=== PATIENT | female | born 1950 | race Caucasian/White ===

== ENCOUNTER → 2018-04-30 12:24 | Outpatient (CLI) | payer MEDICARE, OTHER, SELFPAY ==
--- NOTE | 2018-04-30 | DI.US.S_ITS ---
ULTRASOUND OF LEFT BREAST: 04/30/2018 CLINICAL: 6 month follow-up of cyst. Comparison is made to exams dated: 04/30/2018 mammogram, 11/03/2017 ultrasound, 04/29/2017 ultrasound, 04/29/2017 mammogram, 04/18/2017 mammogram, and 07/28/2013 mammogram - [facility]. Real-time and Doppler ultrasound of the left breast were performed. An scale images of the real-time examination were reviewed. There is a 0.5 x 0.5 x 0.4 cm (previously 0.7 cm x 0.6 cm x 0.4 cm on comparison ultrasound of 11/03/2017) oval cyst with a smooth internal wall in the left breast at 2 o'clock posterior depth 7 cm from the [id number]. This oval cyst is hypoechoic. This abnormality is not significantly changed from prior exam. Color flow imaging demonstrates that there is no vascularity present. IMPRESSION: PROBABLY BENIGN - FOLLOW-UP RECOMMENDED Stable 0.5 cm cyst in the left breast is probably benign. A follow-up ultrasound in 6 months is recommended to demonstrate continued stability. This exam was interpreted at Station ID: [id number]. Electronically Signed By: David Rocha M.D. ecl/:04/30/2018 19:00:49 letter sent: Followup Recommended Ultrasound BI-RADS: 3 Probably benign
--- NOTE | 2018-04-30 | DI.MG.S_ITS ---
BILATERAL DIGITAL DIAGNOSTIC MAMMOGRAM 3D/2D SHORT-TERM FOLLOW-UP: 04/30/2018 CLINICAL: Patient returns for a 6 month follow up of the left breast. Due for bilateral imaging. Comparison is made to exams dated: 04/29/2017 mammogram, 04/18/2017 mammogram, and 07/28/2013 mammogram - [facility]. There are scattered fibroglandular elements in both breasts. Subcentimeter oval circumscribed mass in the left breast at 2 o'clock posterior depth 7 cm from the nipple seen on comaparison exams is not significantly changed from prior exam. No other significant masses, calcifications, or other findings are seen in either breast. IMPRESSION: INCOMPLETE: NEEDS ADDITIONAL IMAGING EVALUATION Stable subcentimeter oval mass in the left breast. Recommend targeted ultrasound for further evaluation. Otherwise, no mammographic evidence of maligancy in either breast identified. This exam was interpreted at Station ID: [id number]. NOTE: For mammograms, a report in lay terms will be sent to the patient. Approximately 15% of breast malignancies will not be visualized mammographically. In the management of a palpable breast mass, a negative mammogram must not discourage biopsy of a clinically suspicious lesion. Electronically Signed By: David Rocha M.D. ecl/:04/30/2018 18:57:58 ACR BI-RADS Category 0: Incomplete 3340F
== END ==
PROVIDERS: Family Provider Family Medicine; PCP Family Medicine; Visit Provider Family Medicine
DX: R92.8 Other abnormal and inconclusive findings on diagnostic imaging of breast (principal); N60.02 Solitary cyst of left breast
CPT/HCPCS: 76642; 77066; G0279

== ENCOUNTER → 2018-07-23 13:33 | Outpatient (CLI) | payer MEDICARE, OTHER, SELFPAY | PROVIDERS: Family Provider Family Medicine; PCP Family Medicine; Visit Provider Family Medicine | DX: R20.2 Paresthesia of skin (principal) | CPT/HCPCS: 95886; 95909 ==

== ENCOUNTER → 2019-03-15 09:08 | Outpatient (CLI) | payer MEDICARE, OTHER, SELFPAY ==
--- NOTE | 2019-03-15 | DI.US.S_ITS ---
LIMITED ULTRASOUND OF LEFT BREAST: 03/15/2019 CLINICAL: 6 month follow-up of cyst. Comparison is made to exams dated: 03/15/2019 mammogram, 04/30/2018 ultrasound, 04/30/2018 mammogram, 11/03/2017 ultrasound, 04/29/2017 ultrasound, and 04/29/2017 mammogram - [facility]. Real-time and Doppler ultrasound of the left breast 2 o'clock region were performed. An scale images of the real-time examination were reviewed. There is a 0.5 x 0.5 x 0.4 cm (previously 0.5 x 0.5 x 0.4 cm on comparison ultrasound of 04/30/2018, 0.7 cm x 0.6 cm x 0.4 cm on comparison ultrasound of 11/03/2017, and 0.8 x 0.8 x 0.4 cm on comparison ultrasound of 04/29/2017) oval circumscribed probable cyst with in the left breast at 2 o'clock position 7 cm from the nipple. This oval probable cyst is hypoechoic. There is posterior acoustic enhancement/increased through transmission through the probable cyst. This probable cyst is not significantly changed from most recent prior exam. Color flow imaging demonstrates that there is no vascularity present within or adjacent to this probable cyst. IMPRESSION: PROBABLY BENIGN Stable 0.5 cm probable cyst in the left breast at 2 o'clock position 7 cm from the nipple is probably benign. A follow-up ultrasound in 6 months is recommended to demonstrate continued stability. The patient is advised to monitor her breasts and to return sooner for re-evaluation should she feel anything grow or change. This exam was interpreted at Station ID: [id number]. Electronically Signed By: David Rocha M.D. ecl/:03/15/2019 10:56:08 letter sent: Followup Recommended Ultrasound BI-RADS: 3 Probably benign
--- NOTE | 2019-03-15 | DI.MG.S_ITS ---
BILATERAL DIGITAL DIAGNOSTIC MAMMOGRAM 3D/2D SHORT-TERM FOLLOW-UP: 03/15/2019 CLINICAL: Short follow up left breast (late), due bilaterally. Comparison is made to exams dated: 04/30/2018 mammogram, 04/29/2017 mammogram, 04/18/2017 mammogram, 04/30/2018 ultrasound, 04/29/2017 ultrasound, and 11/03/2017 ultrasound - [facility]. There are scattered fibroglandular elements in both breasts. Previously noted subcentimeter oval circumscribed mass in the left breast at 2 o'clock posterior depth 7 cm from the nipple seen on comparison exams is not significantly changed from prior exams. A focal asymmetry in the lateral right breast at middle depth resolves with additional spot compression views, and likely represented superimposition of benign fibroglandular tissues. No other significant masses, calcifications, or other findings are seen in either breast. IMPRESSION: INCOMPLETE: NEEDS ADDITIONAL IMAGING EVALUATION Previously noted subcentimeter oval circumscribed mass in the left breast at 2 o'clock posterior depth 7 cm from the nipple seen on comparison exams is not significantly changed from prior exams. A targeted ultrasound is recommended for further evaluation. This exam was interpreted at Station ID: [id number]. NOTE: For mammograms, a report in lay terms will be sent to the patient. Approximately 15% of breast malignancies will not be visualized mammographically. In the management of a palpable breast mass, a negative mammogram must not discourage biopsy of a clinically suspicious lesion. Electronically Signed By: David Rocha M.D. ecl/:03/15/2019 10:07:28 ACR BI-RADS Category 0: Incomplete 3340F
== END ==
PROVIDERS: PCP Family Medicine; Visit Provider Family Medicine
DX: R92.8 Other abnormal and inconclusive findings on diagnostic imaging of breast (principal); N63.21 Unspecified lump in the left breast, upper outer quadrant
CPT/HCPCS: 76642; 77066; G0279

== ENCOUNTER → 2019-09-23 10:14 | Outpatient (CLI) | payer MEDICARE, OTHER, SELFPAY ==
--- NOTE | 2019-09-23 | DI.US.S_ITS ---
LIMITED ULTRASOUND OF LEFT BREAST: 09/23/2019 CLINICAL: 6 month follow-up of cysts. Comparison is made to exams dated: 03/15/2019 ultrasound, 03/15/2019 mammogram, 04/30/2018 ultrasound, 04/30/2018 mammogram, 11/03/2017 ultrasound, and 04/29/2017 ultrasound [facility]. Color flow and real-time ultrasound of the left breast 2 o'clock region were performed. An scale images of the real-time examination were reviewed. There is a stable 0.5 cm x 0.4 cm x 0.5 cm hypoechoic cystic structure in the left breast at 2 o'clock posterior depth 7 cm from the nipple. This cyst displays posterior acoustic enhancement. Color flow imaging demonstrates that there is no vascularity present. IMPRESSION: BENIGN There is no sonographic evidence of malignancy. The 0.5 cm cyst in the left breast is stable, most likely is a simple cyst and is benign. Return to annual mammogram screening schedule is recommended. Findings and recommendations were conveyed to the patient at time of exam. This exam was interpreted at Station ID: [id number]. Electronically Signed By: Sweetie rodríguez/:09/23/2019 13:04:40 letter sent: Normal Exam Ultrasound BI-RADS: 2 Benign
== END ==
PROVIDERS: PCP Family Medicine; Visit Provider Family Medicine
DX: R92.8 Other abnormal and inconclusive findings on diagnostic imaging of breast (principal); N60.02 Solitary cyst of left breast
CPT/HCPCS: 76642

== ENCOUNTER → 2020-07-03 09:42 | Outpatient (CLI) | payer MEDICARE, OTHER, SELFPAY ==
--- NOTE | 2020-07-03 | DI.MG.S_ITS ---
BILATERAL DIGITAL SCREENING MAMMOGRAM 3D/2D WITH CAD: 07/03/2020 CLINICAL: Routine screening. Comparison is made to exams dated: 03/15/2019 mammogram, 04/30/2018 mammogram, 04/18/2017 mammogram, and 07/28/2013 mammogram - [facility]. There are scattered fibroglandular elements in both breasts. Current study was also evaluated with a Computer Aided Detection (CAD) system. No significant masses, calcifications, or other findings are seen in either breast. There has been no significant interval change. IMPRESSION: NEGATIVE There is no mammographic evidence of malignancy. A 1 year screening mammogram is recommended. This exam was interpreted at Station ID: [id number]. NOTE: For mammograms, a report in lay terms will be sent to the patient. Approximately 15% of breast malignancies will not be visualized mammographically. In the management of a palpable breast mass, a negative mammogram must not discourage biopsy of a clinically suspicious lesion. Electronically Signed By: Pedro Luis perla/alannah:07/03/2020 17:36:52 letter sent: Normal Exam ACR BI-RADS Category 1: Negative 3341F
== END ==
PROVIDERS: PCP Family Medicine; Referring Provider Family Medicine; Visit Provider Family Medicine
DX: Z12.31 Encounter for screening mammogram for malignant neoplasm of breast (principal)
CPT/HCPCS: 77063; 77067

== ENCOUNTER → 2021-02-14 07:40 | Outpatient (CLI) | payer MEDICARE, OTHER, SELFPAY ==
--- NOTE | 2021-02-14 | DI.ECHO.S_ITS ---
[facility]---------+ [facility] +---------+ : : [address] : : : : [id number] : : : : Phone: [phone]+ Echocardiogram Report + + :Name: MACIE GAUTHIER Study Date: 02/14/2021 Height: 63 in : :[facility] ReadingLocation: Weight: 289 lb : : Gender: Female BSA: 2.3 m2 : :: 1950 Age: 70 yrs BP: 140/76 mmHg: :Reason For Study: CARDIAC MURMUR : :Ordering Physician: HUGH, : :NICHOLAS Performed By: Lana Machado : :Referring: NICHOLAS REESE : + + Interpretation Summary Technicall difficult study limiting LV and valve visualization. 1) Grossly normal left ventricular size and systolic function (EF 60-65%). 2) The right ventricle is mildly dilated. The right ventricular systolic function is normal. 3) No significant valvular abnormalities. 4) No prior Echo available for comparison. Procedure: The study quality was technically limited. There is no prior echocardiogram noted for this patient. The study quality was technically difficult. A contrast injection of Definity was performed to improve assessment of LV function. The patient was in sinus rhythm with heart rates between 68-78 bpm during the exam. Left Ventricle: The left ventricle is grossly normal size. The left ventricular ejection fraction is grossly normal. The ejection fraction is estimated to be 60-65%. There are no obvious focal wall motion abnormalities noted but poor endocardial definition reduces the sensitivity for the detection of such. Diastolic parameters suggest probable normal left ventricular diastolic function and normal filling pressures. Right Ventricle: The right ventricle is mildly dilated. The right ventricular systolic function is normal. Atria: Both atria are normal in size. There is no Doppler evidence for an interatrial shunt. Mitral Valve: The mitral valve leaflets appear mildly thickened, but open well. There is trace mitral regurgitation. Aortic Valve: The aortic valve is not well visualized. There is mild aortic valve sclerosis. There is no aortic valve stenosis. No aortic regurgitation is present. Tricuspid Valve: The tricuspid valve is not well visualized, but is grossly normal. There is mild tricuspid regurgitation. Right ventricular systolic pressure is estimated to be 27 mmHg plus the clinically estimated CVP which cannot be estimated on this exam. Pulmonic Valve: The pulmonic valve is not well visualized. Great Vessels: The aortic root is normal size. The dimensions of the ascending aorta are normal. The aortic arch is normal in size. The inferior vena cava was not well visualized. Pericardium/ Pleura There is no pericardial effusion. There is no pleural effusion. MMode/2D Measurements & Calculations EPSS: 0.33 cm LVOT diam: 2.1 cm Ao root diam: 3.0 cm asc Aorta Diam: 3.2 cm Ao Arch Diam (Prox Trans): 2.9 cm LA A2 area: 17.6 cm2 RA long axis: 4.6 cm LA A4 area: 25.0 cm2 RA area: 15.5 cm2 LA length (vol): 5.8 cm RA vol: 44.2 ml LA vol: 64.8 ml RA : 19.6 ml/m2 LA vol index: 28.6 ml/m2 RVD1 (basal): 4.0 cm TAPSE: 2.4 cm Doppler Measurements & Calculations Ao V2 max: 190.6 cm/sec LVOT Max Dhiraj: 118.9 cm/sec Ao V2 mean: 141.8 cm/sec LV V1 max P.7 mmHg Ao max P.5 mmHg LV V1 VTI: 28.9 cm Ao mean P.9 mmHg BAUTISTA(I,D): 2.3 cm2 Ao V2 VTI: 42.4 cm BAUTISTA(V,D): 2.1 cm2 sev ratio: 0.68 BAUTISTA indexed to BSA (cm^2/m^2): 1.00 MV E max dhiraj: 95.3 cm/sec TR max dhiraj: 257.9 cm/sec MV A max dhiraj: 126.0 cm/sec TR max P.6 mmHg MV E/A: 0.76 PA V2 max: 104.6 cm/sec Med Peak E' Dhiraj: 6.5 cm/sec PA V2 mean: 72.6 cm/sec E/E' med: 14.8 PA mean P.4 mmHg Lat Peak E' Dhiraj: 10.6 cm/sec PA pr(Accel): 36.2 mmHg E/E' lat: 9.0 E/e' average: 11.9 MV dec time: 0.25 sec SV(LVOT): 95.8 ml Reading Physician:12:46 PM
== END ==
PROVIDERS: PCP Family Medicine; Referring Provider Family Medicine; Visit Provider Family Medicine
DX: I08.2 Rheumatic disorders of both aortic and tricuspid valves (principal); R01.1 Cardiac murmur, unspecified
CPT/HCPCS: 93306

== ENCOUNTER → 2021-02-23 08:50 | Outpatient (CLI) | payer MEDICARE, OTHER, SELFPAY ==
--- NOTE | 2021-02-23 | DI.US.S_ITS ---
PROCEDURE: US CAROTID DOPPLER BI INDICATIONS: BRUIT TECHNIQUE: Color and pulse Doppler interrogation was performed of both carotid systems, with image documentation and velocity measurements. COMPARISON: None. FINDINGS: Stenosis calculations are based on SRU (Society of Radiologists in Ultrasound) criteria. Right side: Common carotid artery peak systolic velocity: 95 cm/sec. Internal carotid artery peak systolic velocity: 111 cm/sec. Internal carotid artery end diastolic velocity: 11 cm/sec. External carotid artery peak systolic velocity: 173 cm/sec. ICA/CCA peak systolic ratio: 1.2 . An scale imaging description: No visualize calcific or soft plaque Percent internal carotid artery stenosis: None found . Vertebral artery: Flow direction is antegrade. Left side: Brachial blood pressure: 122/59 mm Hg. Common carotid artery peak systolic velocity: 95 cm/sec. Internal carotid artery peak systolic velocity: 109 cm/sec. Internal carotid artery end diastolic velocity: 29 cm/sec. External carotid artery peak systolic velocity: 141 cm/sec. ICA/CCA peak systolic ratio: 1.2 . An scale imaging description: None found Percent internal carotid artery stenosis: None found . Vertebral artery: Flow direction is antegrade. IMPRESSION: No appreciable carotid stenosis bilaterally. Vertebral arterial flow is normal. Dictated by: Heriberto Richards M.D. on 02/23/2021 at 15:50 Approved by: Heriberto Richards M.D. on 02/23/2021 at 15:55
== END ==
PROVIDERS: PCP Family Medicine; Referring Provider Family Medicine; Visit Provider Family Medicine
DX: R09.89 Other specified symptoms and signs involving the circulatory and respiratory systems (principal)
CPT/HCPCS: 93880

== ENCOUNTER → 2021-11-12 10:21 | Outpatient (CLI) | payer MEDICARE, OTHER, SELFPAY ==
--- NOTE | 2021-11-12 | DI.MG.S_ITS ---
BILATERAL DIGITAL SCREENING MAMMOGRAM 3D/2D WITH CAD: 11/12/2021 CLINICAL: Routine screening. Comparison is made to exams dated: 07/03/2020 mammogram, 03/15/2019 mammogram, and 04/30/2018 mammogram - [facility]. There are scattered fibroglandular elements in both breasts. Current study was also evaluated with a Computer Aided Detection (CAD) system. No significant masses, calcifications, or other findings are seen in either breast. There has been no significant interval change. IMPRESSION: NEGATIVE There is no mammographic evidence of malignancy. A 1 year screening mammogram is recommended. This exam was interpreted at Station ID: [id number]. NOTE: For mammograms, a report in lay terms will be sent to the patient. Approximately 15% of breast malignancies will not be visualized mammographically. In the management of a palpable breast mass, a negative mammogram must not discourage biopsy of a clinically suspicious lesion. Electronically Signed By: Manny lazo/alannah:11/12/2021 11:38:28 letter sent: Normal Exam ACR BI-RADS Category 1: Negative 3341F
== END ==
PROVIDERS: PCP Family Medicine; Referring Provider Family Medicine; Visit Provider Family Medicine
DX: Z12.31 Encounter for screening mammogram for malignant neoplasm of breast (principal)
CPT/HCPCS: 77063; 77067

== ENCOUNTER → 2022-10-21 09:53 | Outpatient (CLI) | payer MEDICARE, OTHER, SELFPAY ==
--- NOTE | 2022-10-21 09:55 | DI.RAD.S_ITS ---
PROCEDURE: XR LUMBAR SPINE MIN 4V INDICATIONS: LOW BACK PAIN TECHNIQUE: 5 views of the lumbar spine acquired, including flexion and extension views. COMPARISON: [facility], , L-SPINE 2-3 VIEWS, 08/24/2012, 13:40. FINDINGS: Bones: 5 nonrib-bearing vertebrae are present. There is normal bony alignment. No vertebral body compression fractures. No suspicious bony lesions. Disc space narrowing and hypertrophic facet joints noted in lower lumbar spine. Grade 1 anterior spondylolisthesis at L4-5 and L3-4 Soft tissues: Overlying bowel gas pattern is normal. No suspicious soft tissue calcifications. 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 on 10/21/2022 at 15:35
== END ==
PROVIDERS: PCP Family Medicine; Referring Provider Anesthesiology; Visit Provider Anesthesiology
DX: M51.36 Other intervertebral disc degeneration, lumbar region (principal); M47.816 Spondylosis without myelopathy or radiculopathy, lumbar region; M47.817 Spondylosis without myelopathy or radiculopathy, lumbosacral region; M54.50 Low back pain, unspecified; G89.29 Other chronic pain
CPT/HCPCS: 72110; 99214

== ENCOUNTER 2022-10-31 09:46 | Outpatient (CLI) | payer MEDICARE, OTHER, SELFPAY ==
[2022-10-31] VITALS (10 sets, daily range): BP systolic 125–153; BP diastolic 57–67; PULSE 72–82; RESP 16–23; TEMP 36.6; O2SAT 96–99
--- NOTE | 2022-10-31 09:48 | DI.RAD.S_ITS ---
PROCEDURE: PAIN L/S FACET INJ/BLK 1ST JOHN COMPARISON: [facility], CR, XR LUMBAR SPINE MIN 4V, 10/21/2022, 10:15. INDICATIONS: SPINAL STENOSIS FINDINGS: Right L3-L4, L4-L5, L5-S1 neural foraminal needles. IMPRESSION: Intraoperative guidance provided. Dictated by: Pedro Luis Miller M.D. on 10/31/2022 at 11:56 Approved by: Pedro Luis Miller M.D. on 10/31/2022 at 12:47
[2022-10-31] MEDS: IOPAMIDOL 15 ML VIAL 3 ML INJ (10:49)
[2022-10-31] MEDS: BUPIVACAINE 0.5% MDV 10 ML SUBCUT (10:51)
--- NOTE | 2022-10-31 12:32 | P.PCN_ITS ---
Date/Time/Diagnoses Date of procedure: 10/31/22 Time of procedure: 10:30 Procedure Notes Physician: Blake Smith Total Fluoroscopy time (seconds): 49 Total sedation minutes: 0 Procedure in detail & Post-procedure care: Bilateral L3, 4, 5 Lumbar Medial Branch Blocks Indications: Lili is referred by Dr. Werner for treatment of lumbar spondylosis with low back pain. Preoperative diagnosis: Bilateral lumbar spondylosis Postoperative diagnosis: Same Pre-procedure History: Patient demonstrates today moderate to severe non- radicular back pain without neurologic deficit aggravated by hyperextension yes Back pain greater than leg pain? yes Patient today has tenderness over the suspected joint(s) yes History of post-traumatic injury? now Hypertrophic arthropathy S Back pain associated with suspected motion segment instability, hypermobility or pseudoarthrosis now Pre-testing pain score (VAS): 5/10 Focused Examination: Ax3 Mood and affect are normal Vital Signs: VSS ASA: 3 Consent: Following review of allergies and potential side effects/complications, including, but not necessarily limited to, infection, allergic reaction, local tissue breakdown, stroke, temporary or permanent nerve injury, paralysis, and possible , the patient indicated that they understood and agreed to proceed.? An informed consent document was signed by the patient, witnessed by a nurse and placed in the patient's chart.? Additionally, other treatment options including medications and physical therapy were reviewed with the patient. All questions were answered. Site was then marked. Anesthesia: Local Position: Prone Monitoring: NIBP, Pulse oximetry, 3 lead EKG Needle used: 25G 5 inch spinal needle Contrast: Isovue 300M Injectate: 0.5% bupivacaine 1 mL per site Procedure: The patient was brought into the procedure room and positioned into the prone position. Skin was prepped with a Chloraprep solution, allowed to air dry, and then draped in sterile fashion.? The right L3, 4, 5 facet joints were v isually identified with fluoroscopy. Lidocaine 1% was used to anesthetize the skin over each target destination with a 25ga needle. A 22 ga, 5 inch spinal needle was advanced to the location of the medial branch at the junction of the superior articular process and the transverse process using intermittent fluoroscopy in the oblique view. Isovue 300M contrast 0.2ml was injected at each level outlining the medial borders for each level and the base of the SAP of the sacrum]in the AP and lateral views. There was no evidence of vascular or intrathecal uptake. The above injectate was slowly injected at each target destination. The above procedure was then repeated for the left L3, 4, 5 facet joints. At the end of the procedure the needles were withdrawn and Band-Aids were applied for a dressing. Post Procedure: Patient was taken to the recovery and monitored. The patient was provided a Pain Log to continue to record the patient's response to the target-specific procedure prior to the patient's follow-up visit with the referring physician. Patient was stable upon discharge. Detailed post procedure instructions were provided. Patient was asked to call in the event of worsening pain, fever, weakness, numbness or bladder or bowel incontinence. Postoperatively, today patient demonstrates the following changes with hyperextension and with tenderness over the suspected joint(s). Provacative testing using the Banuelos's facet loading test Right side Left side Directly before the block ?VAS (0-10) = 5/10 VAS (0-10) = 5/10 5 minutes after the block VAS (0-10) = 0/10 VAS (0-10) = 0/10 Percentage relief obtained with this diagnostic block 100 % 100 % Any improved physical functioning directly after the blocks? Walking and range of motion Based on the medial branches blocked today, if the patient meets insurance criteria for radiofrequency, the treatment should result in the denervation of the bilateral L4-5 and L5-S1 facet joint nerves. We would expect to denervate a total of 4 facets during the radiofrequency ablation.
== END 2022-10-31 11:12 | disposition home or self-care (01) ==
LOC: RAD 09:47
PROVIDERS: PCP Family Medicine; Referring Provider Anesthesiology; Visit Provider Anesthesiology
DX: M47.816 Spondylosis without myelopathy or radiculopathy, lumbar region (principal)
CPT/HCPCS: 64493; 64494

== ENCOUNTER → 2024-02-11 12:46 | Outpatient (CLI) | payer MEDICARE, OTHER, SELFPAY ==
--- NOTE | 2024-02-11 12:48 | DI.MG.S_ITS ---
BILATERAL DIGITAL SCREENING MAMMOGRAM 3D/2D WITH CAD: 02/11/2024 CLINICAL: Routine screening. Comparison is made to exams dated: 11/12/2021 mammogram, 07/03/2020 mammogram, 03/15/2019 mammogram, and 04/30/2018 mammogram - . There are scattered areas of fibroglandular density in both breasts (category b / 25%-50% glandular tissue). Current study was also evaluated with a Computer Aided Detection (CAD) system. No significant masses, calcifications, or other findings are seen in either breast. There has been no significant interval change. IMPRESSION: NEGATIVE There is no mammographic evidence of malignancy. A 1 year screening mammogram is recommended. Based on the Tyrer Cuzick model (a risk assessment model) the patient's lifetime risk is 2.0% and her 10 year risk is 1.8%. According to the ACR, ACS, and NCCN guidelines, an annual breast MRI exam along with mammogram is recommended if the patient's lifetime risk is 20% or greater. This exam was interpreted at Station ID: [id number]. NOTE: For mammograms, a report in lay terms will be sent to the patient. Approximately 15% of breast malignancies will not be visualized mammographically. In the management of a palpable breast mass, a negative mammogram must not discourage biopsy of a clinically suspicious lesion. Electronically Signed By: Sweetie rodríguez/alananh:02/16/2024 13:06:53 letter sent: Normal Exam ACR BI-RADS Category 1: Negative 3341F
== END ==
LOC: MAMMO 12:47
PROVIDERS: PCP Family Medicine; Referring Provider Family Medicine; Visit Provider Family Medicine
DX: Z12.31 Encounter for screening mammogram for malignant neoplasm of breast (principal)
CPT/HCPCS: 77063; 77067

== ENCOUNTER → 2024-07-28 11:20 | Outpatient (CLI) | payer MEDICARE, OTHER, SELFPAY ==
--- NOTE | 2024-07-28 | DI.RAD.S_ITS ---
PROCEDURE: XR DEXA AXIAL SKELETON INDICATIONS: HX OF MENOPAUSE COMPARISON: [facility], [place], DEXA AXIAL SKELETON, 11/03/2017, 10:31. FINDINGS: Lumbar Spine: Bone mineral density 1.237 g/cm2, T score 1.8, previously 1.8, with an overall 5 percent decrease in bone mineral density. Left Hip: Bone mineral density 1.044 g/cm2, T score 0.8, previously 0.0, with an overall 11 percent increase in bone density. Left Femoral Neck: Bone mineral density 0.725 g/cm2, T score -1.1, previously-0.8, with an overall 4 percent decrease in bone mineral density. Right Hip: Bone mineral density 0.956 g/cm2, T score 0.1, previously -0.3 with an overall 6 percent increase in bone mineral density. Right Femoral Neck: Bone mineral density 0.731 g/cm2, T score -1.1, previously -1.5, with an overall 7 percent increase in bone mineral density. Fracture Risk Calculation (when applicable): 10-year fracture risk of a major osteoporotic fracture 8.1 percent and of a hip fracture 1.1 percent. (T score greater or equal to -1.0 to: NORMAL) (T score from -1.1 to -2.4: OSTEOPENIA) (T score less than or equal to -2.5: OSTEOPOROSIS) IMPRESSION: 1. Normal bone density of the lumbar spine. 2. Normal bone density of the hips, although there is osteopenia of the femoral necks. Follow-up guidelines as follows: Osteoporosis: Consider a repeat DEXA and Vertebral Fracture Assessment (VFA) exam in 2 years or sooner if medically necessary, to reassess this patient's status. Osteopenia: Consider a repeat DEXA in 2-3 years to reassess this patient's status, or if there is a new clinical indication. Normal: Consider a repeat DEXA in 5 years or sooner, or if there is a new clinical indication. All treatment decisions require clinical judgment and consideration of individual patient factors, including patient preferences, comorbidities, previous drug use, risk factors not captured in the FRAX model (e.g., frailty, falls, vitamin D deficiency, increased bone turnover, interval significant decline in bone density ) and possible under- or over-estimation of fracture risk by FRAX. In addition, the NOF Guide recommends that FDA-approved medical therapies be considered in postmenopausal women and men age >= 50 years with a: * Hip or vertebral (clinical or morphometric) fracture * T-score of <=-2.5 at the spine or hip * Ten-year fracture probability by FRAX of >= 3% for hip fracture or >=20% for major osteoporotic fracture. People with diagnosed cases of osteoporosis or at high risk for fracture should have regular bone mineral density tests. For patients eligible for Medicare, routine testing is allowed once every 2 years. The testing frequency can be increased to one year for patients who have rapidly progressing disease, those who are receiving or discontinuing medical therapy to restore bone mass, or have additional risk factors. Dictated by: Santy Bright M.D. on 08/03/2024 at 11:33 Approved by: Santy Bright M.D. on 08/03/2024 at 11:40
== END ==
PROVIDERS: PCP Family Medicine; Referring Provider Family Medicine; Visit Provider Family Medicine
DX: Z78.0 Asymptomatic menopausal state (principal); M85.89 Other specified disorders of bone density and structure, multiple sites
CPT/HCPCS: 77080

== ENCOUNTER → 2025-04-21 12:40 | Outpatient (CLI) | payer MEDICARE, OTHER, SELFPAY ==
--- NOTE | 2025-04-21 12:42 | DI.MG.S_ITS ---
MM screening mammo BI: 04/21/2025. BI-RADS: 2 CLINICAL: 74-year old female for bilateral screening mammogram. Tyrer-Cuzick lifetime risk of 3.0%. No personal or first-degree family history of breast cancer. PRIOR EXAMS: 02/11/2024, 11/12/2021, 07/03/2020, 09/23/2019. MAMMOGRAPHY TECHNIQUE: The examination is limited by clinical circumstance. 2D and 3D (tomosynthesis) digital mammographic views obtained, with additional images as needed for full coverage. Current study was also evaluated with a Computer Aided Detection (CAD) system. DENSITY B. There are scattered areas of fibroglandular density. MAMMOGRAPHY FINDINGS Bilateral: Benign-appearing calcifications noted. There are no suspicious masses, calcifications, or other findings in the breast. IMPRESSION: * No evidence of malignancy with benign findings. RECOMMENDATIONS Bilateral * Annual screening mammography. OVERALL ASSESSMENT CATEGORY BI-RADS-2: Benign. The [employer] recommends annual screening mammography beginning at age 40 for women with average risk of breast cancer. ELECTRONICALLY SIGNED: Deena Cole M.D. on 04/21/2025 at 11:32:48 PM PT Interpreting Station ID: [id number]
== END ==
PROVIDERS: PCP Family Medicine; Referring Provider Family Medicine; Visit Provider Family Medicine
DX: Z12.31 Encounter for screening mammogram for malignant neoplasm of breast (principal)
CPT/HCPCS: 77063; 77067